=== PATIENT | male | born 1955 | race Caucasian/White ===

== ENCOUNTER 2019-11-21 08:44 | Observation (INO) | payer BC, SELFPAY ==
[2019-11-21] VITALS (11 sets, daily range): BP systolic 118–175; BP diastolic 69–102; PULSE 55–69; RESP 16–20; TEMP 36.6; O2SAT 95–98; BMI 26.4
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
--- NOTE | 2019-11-21 08:52 | CT_ITS ---
WS: [id number] CT ABDOMEN AND PELVIS WITH CONTRAST HISTORY: abd pain TECHNIQUE: Imaging performed of the abdomen and pelvis with IV contrast. Single phase imaging of the abdomen. Coronal and sagittal reformats are submitted. All CT scans at [facility] use at least one of these dose optimization techniques: automated exposure control; mA and/or kV adjustment per patient size (includes targeted exams where dose is matched to clinical indication); or iterativ e reconstruction. IV CONTRAST: Omnipaque 300; 95 mL IV. Oral contrast: No DLP: 767.29 mGy.cm COMPARISON: None available. Lower thorax: Chronic emphysematous changes at the lung bases. There are a few 2 to 3 mm nodules some which are calcified. Heart size is normal. No significant hiatal hernia. Liver/biliary system: Normal size liver with scattered granulomata. Patent portal vein. No duct dilat ation. Gallbladder: Slightly contracted gallbladder. No stones or adjacent inflammation. Pancreas: Normal. Spleen: Normal size spleen with granulomata. Adrenal glands: Bilateral adrenal gland nodules are of decreased attenuation. RIGHT adrenal gland nod ule measures 1.6 x 1.9 cm. LEFT adrenal gland nodule measures 2.1 x 1.4 cm. Right kidney: Very mild dilatation of the RIGHT renal pelvis. No solid mass or stones. Left kidney: Slight dilatation of the renal pelvis, likely an extrarenal pelvis. Low-attenuation subc entimeter nodule in the central renal pelvis may be a lipoma or small complex cysts. No renal obstruc tion. Aorta: Moderate atherosclerosis. Calcified plaque and intimal thickening with no aneurysm. Lymphadenopathy: Soft tissue masses with calcifications are noted within the RIGHT upper quadrant and around the celiac axis. Probably representing lymph nodes containing calcifications which are likely benign. May be related to prior granulomatous disease. Free fluid: None. GI tract: The appendix is been removed. Fluid-filled loops of distal small bowel. Site of the obstruc tion is not evident. Small bowel loops in the LEFT upper abdomen are mildly dilated and hyperemic. So me the central small bowel loops are more normal caliber. Extensive diverticular disease involving th e descending and sigmoid colon. No evidence for acute diverticulitis. Abdominal wall: No defects, mass or hernia. Pelvis: Normally distended urinary bladder. No free fluid or adenopathy in the pelvis. Prostate gland is enlarged and heterogeneous and contains central calcification. Bones: Lumbar spondylosis. No osseous destruction. CT/CT abdomen pelvis w con* [id number] IMPRESSION: 1. Mildly distended proximal and distal small bowel loops. Site of the obstruc tion is not evident and could be due to adhesions. 2. No free fluid or free air. 3. Prior granulomatous disease. 4. Bilateral adrenal nodules. With no history of malignancy these are statisti mark benign adenomas. 5. Descending and sigmoid diverticulosis without acute diverticulitis. 6. Prior cholecystectomy.
[2019-11-21 09:28] LABS: Basophils # 0.1 10^3/uL (0.0-0.1); Basophils % 0.5 %; Eosinophils # 0.3 10^3/uL (0.0-0.8); Eosinophils % 2.9 %; Hematocrit 51.9 % (42.0-52.0); Hemoglobin 17.9 g/dL (11.7-16.6); Lymphocytes # 2.4 10^3/uL (0.8-4.8); Lymphocytes % 24.2 %; Mean Corpuscular HGB Conc 34.5 g/dL (30.0-36.0); Mean Corpuscular Volume 92.7 fL (80-94); Mean Platelet Volume 11.2 fL (7.4-10.4); Monocytes # 0.7 10^3/uL (0.2-0.9); Monocytes % 6.9 %; Neutrophils # 6.5 10^3/uL (1.8-7.7); Neutrophils % 65.2 %; Nucleated Red Blood Cells % 0 %; Platelet Count 217 10^3/cmm (130-400); Red Cell Distribution Width 12.5 % (12.1-15.1)
[2019-11-21] MEDS: morphine 4 mg/mL SDV 1 mL IVP ×2 (09:28→11:51)
[2019-11-21] MEDS: sodium chloride 0.9% 1,000 ML 999 ML IV (09:28)
[2019-11-21] MEDS: ondansetron 2 mg/ML SDV 2 mL 4 MG IVP (09:28)
[2019-11-21 09:39] LABS: Alanine Aminotransferase 20 U/L (0-41); Albumin Level 4.8 g/dL (3.5-5.2); Alkaline Phosphatase 90 IU/L (40-130); Anion Gap 16.4 (5-19); Aspartate Amino Transferase 15 U/L (0-40); Blood Urea Nitrogen 14 mg/dL (8-23); Calcium 10.5 mg/Dl (8.8-10.2); Carbon Dioxide 28 mmol/L (22-29); Chloride 99 mmol/L (98-107); Globulin 2.6 g/dL (1.3-4.6); Glomerular Filtration Rate 97.3 mL/min (90-130); Glucose 134 mg/dL (74-106); Potassium 4.4 mmol/L (3.5-5.1); Sodium 139 mmol/L (136-145); Total Bilirubin 0.7 mg/dL (0.15-1.2); Total Protein 7.4 g/dL (6.6-8.7)
[2019-11-21] MEDS: iohexol 300 mg/mL 100 mL Btl IV (10:07)
[2019-11-21 10:18] LABS: Bilirubin Urine Neg (NEGATIVE); Blood Urine Neg (Negative); Glucose Urine UA Norm (Normal); Ketones Urine Negative (Negative); Nitrate Urine Negative (Negative); Protein Urine Neg (Negative); Urine Appearance Clear (CLEAR); Urine Color Yellow (Yellow); pH Urine 6.5 (5-7)
[2019-11-21 10:19] LABS: Add Urine Microscopic? YES; Leukocyte Esterase Urine Trace (Negative); Urobilinogen Urine Norm (Negative)
[2019-11-21 10:20] LABS: Add Urine Culture? No; Bacteria Urine TRACE; Mucus Urine TRACE; Squamous Epithelial Cell Urine 0-4 (0-5); WBC Urine 0-4 /hpf (0-5)
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
[2019-11-21] MEDS: pantoprazole 40 mg SDV IVP (15:50)
[2019-11-21] MEDS: sodium chloride 0.9% 1,000 ML 100 ML IV (15:50)
[2019-11-21] MEDS: pneumococcal (23 valent) SDV 0.5 mL IM (15:53)
[2019-11-21] MEDS: metoprolol tartrate 50 mg Tablet PO (18:48)
[2019-11-21] MEDS: morphine 4 mg/mL SDV 1 mL 2 MG IVP (18:51)
[2019-11-21] MEDS: levalbuterol 0.63 mg/3 mL Neb INHALATION (20:58)
[2019-11-21] MEDS: nicotine 21 mg Patch 1 PATCH TRANSDERMA (21:16)
[2019-11-21 21:49] LABS: Glucose Point of Care 150 mg/dL (70-110)
[2019-11-22] VITALS (8 sets, daily range): BP systolic 133–148; BP diastolic 75–80; PULSE 59–66; RESP 16–18; TEMP 36.4–36.7; O2SAT 96–100
[2019-11-22] MEDS: morphine 4 mg/mL SDV 1 mL 2 MG IVP ×2 (00:20→06:29)
[2019-11-22] MEDS: sodium chloride 0.9% 1,000 ML 100 ML IV (03:26)
[2019-11-22 05:37] LABS: Basophils % 0.3 %; Eosinophils # 0.3 10^3/uL (0.0-0.8); Eosinophils % 3.2 %; Hematocrit 44.8 % (42.0-52.0); Hemoglobin 14.5 g/dL (11.7-16.6); Lymphocytes # 2.2 10^3/uL (0.8-4.8); Lymphocytes % 21.4 %; Mean Corpuscular HGB Conc 32.4 g/dL (30.0-36.0); Mean Corpuscular Hemoglobin 29.8 pg (28.0-34.0); Mean Corpuscular Volume 92.2 fL (80-94); Mean Platelet Volume 11.7 fL (7.4-10.4); Monocytes # 0.8 10^3/uL (0.2-0.9); Monocytes % 7.4 %; Neutrophils # 6.8 10^3/uL (1.8-7.7); Neutrophils % 67.5 %; Nucleated Red Blood Cells % 0 %; Platelet Count 173 10^3/cmm (130-400); Red Blood Count 4.86 10^6/uL (4.1-5.3); Red Cell Distribution Width 12.7 % (12.1-15.1); White Blood Count 10.1 10^3/uL (4.0-10.0)
[2019-11-22 05:56] LABS: Alanine Aminotransferase 14 U/L (0-41); Albumin Level 4.4 g/dL (3.5-5.2); Alkaline Phosphatase 73 IU/L (40-130); Aspartate Amino Transferase 12 U/L (0-40); Blood Urea Nitrogen 12 mg/dL (8-23); Calcium 9.6 mg/Dl (8.8-10.2); Carbon Dioxide 25 mmol/L (22-29); Chloride 101 mmol/L (98-107); Globulin 1.6 g/dL (1.3-4.6); Glomerular Filtration Rate 97.3 mL/min (90-130); Glucose 140 mg/dL (74-106); Sodium 137 mmol/L (136-145); Total Bilirubin 0.7 mg/dL (0.15-1.2)
--- NOTE | 2019-11-22 06:00 | XR_ITS ---
WS: [id number] ABDOMEN SERIES ACUTE Supine and upright views of the abdomen with AP or PA chest CLINICAL INFORMATION: illeus/SBO COMPARISON: CT November 21, 2019 FINDINGS: Heart: Normal cardiac silhouette. Lungs: Lungs are clear. No consolidation or pleural fluid. Bowel gas pattern: No significant bowel distention. Persistent air in the small and large bowel. Free air: None. Abnormal calcifications: None. Bones: Normal. XR/XR acute abdomen series [id number] IMPRESSION: No significant small bowel distention. No evidence of small bowel obstruction p rogression
[2019-11-22 07:08] LABS: Glucose Point of Care 120 mg/dL (70-110)
[2019-11-22] MEDS: atorvastatin 40 mg Tablet 80 MG PO (09:03)
[2019-11-22] MEDS: metoprolol tartrate 50 mg Tablet PO (09:04)
[2019-11-22] MEDS: pantoprazole 40 mg SDV IVP (09:04)
[2019-11-22] MEDS: aspirin 81 mg EC Tablet PO (09:04)
[2019-11-22] MEDS: lisinopril 10 mg Tablet PO (09:04)
[2019-11-22] MEDS: clopidogrel 75 mg Tablet PO (09:04)
[2019-11-22] MEDS: amlodipine 5 mg Tablet 2.5 MG PO (09:05)
--- NOTE | 2019-11-22 09:51 | PM.PN ---
Subjective Subjective: Interval history: The patient seems to indicate that he is feeling a little bit better today. He has not had any bowel movements since he came into the hospital, and consequently stool studies have not been sent yet. He has taken some pain medication for his abdominal pain, and says that some of that is still lingering in the lower midline. Vitals/I&O/Wt Last Vital Signs Temp 98.1 F 11/22/19 08:00 Pulse 63 11/22/19 08:00 Resp 16 11/22/19 08:00 BP 148/80 11/22/19 08:00 Pulse Ox 98 11/22/19 08:00 11/21/19 11/22/19 11/22/19 22:59 06:59 14:59 Intake Total 840 / 840 1000 / 1840 720 / 720 Output Total 300 / 300 875 / 875 Balance 840 / 840 700 / 1540 -155 / -155 Weight last 48 hrs Weight 181 lb 7 oz Weight 174 lb Physical Exam Narrative: EXAM NARRATIVE: Bowel sounds are present but are hypoactive. The abdomen remains very soft he does have some mild to moderate tenderness in the lower midline without guarding. A&P Assessment and plan (1) Abdominal pain: Again, I do not think the patient has any type of small bowel obstruction. This appears to be more of an enteritis in my mind. Status: Acute Code(s): R10.9 - Unspecified abdominal pain (2) Diarrhea: The patient has not had any further bowel movements since coming into the hospital. Stool studies are ordered and pending. Status: Acute Code(s): R19.7 - Diarrhea, unspecified Attestations Medical Necessity Statement*: See admitting service's notation. 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
[2019-11-22 11:35] LABS: Glucose Point of Care 122 mg/dL (70-110)
--- NOTE | 2019-11-22 13:50 | PM.DCS ---
Discharge Providers Date of Admission: 11/21/19 11:33 Date of Discharge: 11/22/19 Attending Provider at Admission: Erika Oneal MD Attending Provider at Discharge: Erika Oneal MD Primary Care Provider: Fede Mota MD Diagnoses at Discharge Discharge Diagnosis (1) Abdominal pain: Status: Acute Problem details: Improved on date of discharge Recommend close outpatient follow-up with primary care provider (2) Diarrhea: Status: Acute Problem details: No further episodes of diarrhea since admission, unable to collect further stool studies. Reason for Visit Reason for Visit: Reason For Visit: Illeus,Sob Hospital Course Hospital Course: Patient was seen and evaluated in the emergency department due to concern for abdominal pain and nausea and vomiting he was admitted to the hospital for further evaluation and treatment. In the ED there was a concern for partial small bowel obstruction therefore general surgery was consulted. Patient was started on a clear liquid diet after he was able to pass gas and stool studies were ordered for further evaluation due to patient being on well water and having diarrhea for the past 6 weeks. Patient did not have any further diarrhea stools but continued to pass flatus. He was started on PPI and continued to have improvement in his symptoms. Discussed with general surgeon and more concern for gastroenteritis rather than partial obstruction. Plan for discharge with close outpatient follow-up with primary care provider. Physical Exam Const: COMMON NORMALS: oriented x3 and alert GENERAL APPEARANCE: cooperative ORIENTATION/CONSCIOUSNESS: Yes awake, Yes oriented to person, Yes oriented to place and Yes oriented to time HENMT: COMMON NORMALS: normocephalic and head/scalp atraumatic HEAD & SCALP: normocephalic and atraumatic Eye: COMMON NORMALS: PERRL PUPIL: Yes PERRL Neck/C-Spine: COMMON NORMALS: supple GENERAL: Yes normal visual inspection Resp: COMMON NORMALS: normal respiratory effort and clear to auscultation bilaterally EFFORT & INSPECTION: Yes able to speak in complete sentences AUSCULTATION: clear to auscultation bilaterally, no rhonchi and no wheezes Cardio: COMMON NORMALS: regular rate and regular rhythm RATE: regular rate RHYTHM: regular rhythm GI: COMMON NORMALS: soft to palpation AUSCULTATION: Yes normoactive bowel sounds PALPATION: Yes soft and No tender Extremity: COMMON NORMALS: no clubbing, cyanosis or edema and no calf tenderness Neuro: COMMON NORMALS: oriented x3, CN's II-XII intact bilaterally, moves all extremities and no focal motor deficits SENSORIUM/ORIENTATION: Yes alert, Yes oriented to person, Yes oriented to place and Yes oriented to time SPEECH: speech normal Psych: COMMON NORMALS: mental status grossly normal and cooperative Skin: COMMON NORMALS: no rashes or lesions noted GENERAL SKIN EXAM: no rashes or lesions noted Discharge Data Data Completed and Pending: Completed Studies During Hospitalization Category Date Time Status CT abdomen pelvis w con* [id number] Urge nt Cat Scan 11/21/19 08:52 Completed XR acute abdomen series [id number] Routi ne Exams 11/22/19 06:00 Completed Pending at discharge Category Date Time Status Ova and Parasite Exam Routine Lab 11/21/19 12:55 Uncollected PSA Free Routine Lab 11/22/19 04:11 Received Stool Culture Rou [place] Lab 11/21/19 12:55 Uncollected Labs from last 24 hours 11/22/19 11/22/19 11/22/19 11:31 06:45 04:11 WBC RBC Hgb Hct MCV MCH MCHC RDW Plt Count MPV Neut % (Auto) Lymph % (Auto) [place] % (Auto) Eos % (Auto) Baso % (Auto) Neut # (Auto) Lymph # (Auto) [place] # (Auto) Eos # (Auto) Baso # (Auto) Nucleated RBC % (a uto) Nucleated RBCs # Sodium 137 Potassium 4.0 Chloride 101 Carbon Dioxide 25 Anion Gap 15.0 BUN 12 Creatinine 0.8 GFR Calculation 97.3 Glucose 140 H POC Glucose 122 120 Calcium 9.6 Total Bilirubin 0.7 AST 12 ALT 14 Alkaline Phosphata se 73 Total Protein 6.0 L Albumin 4.4 Globulin 1.6 11/22/19 11/21/19 04:11 20:26 WBC 10.1 H RBC 4.86 Hgb 14.5 Hct 44.8 MCV 92.2 MCH 29.8 MCHC 32.4 D RDW 12.7 Plt Count 173 MPV 11.7 H Neut % (Auto) 67.5 Lymph % (Auto) 21.4 [place] % (Auto) 7.4 Eos % (Auto) 3.2 Baso % (Auto) 0.3 Neut # (Auto) 6.8 Lymph # (Auto) 2.2 [place] # (Auto) 0.8 Eos # (Auto) 0.3 Baso # (Auto) 0.0 Nucleated RBC % (a uto) 0 Nucleated RBCs # 0.0 Sodium Potassium Chloride Carbon Dioxide Anion Gap BUN Creatinine GFR Calculation Glucose POC Glucose 150 Calcium Total Bilirubin AST ALT Alkaline Phosphata se Total Protein Albumin Globulin Vitals: Last Vital Signs Temp 97.6 F 11/22/19 11:31 Pulse 59 L 11/22/19 11:31 Resp 16 11/22/19 11:31 BP 146/76 11/22/19 11:31 Pulse Ox 97 11/22/19 11:31 Discharge Plan Discharge Patient Disposition: Home, Self-Care Condition: Stable Prescriptions: New ondansetron HCl [Zofran] 4 mg tablet 4 mg PO Q8H PRN (Reason: nausea and vomiting) 5 Days Qty: 20 RF: 0 pantoprazole [Protonix] 40 mg tablet,delayed release (DR/EC) 40 mg PO DAILY 30 Days Qty: 30 RF: 0 Continued levalbuterol HCl 0.63 mg/3 mL Solution For Nebulization See Rx Instructions .ROUTE .COMPLEX RF: 0 Xanax 1 mg Tablet 1 mg PO TID PRN (Reason: Anxiety) RF: 0 metoprolol tartrate 100 mg Tablet 50 mg PO BID RF: 0 amlodipine-benazepril 2.5-10 mg Capsule 1 cap PO DAILY RF: 0 Plavix 75 mg Tablet 75 mg PO DAILY RF: 0 Aspir-81 81 mg Tablet,Delayed Release (Dr/Ec) 81 mg PO DAILY RF: 0 rosuvastatin 40 mg Tablet 40 mg PO DAILY RF: 0 Fish Oil 1,000 mg (120 mg-180 mg) Capsule 1 cap PO DAILY PRN (Reason: unknown) RF: 0 Discharge Orders: Discharge Order (Routine); Ordered 11/22/19 Ordered By: Erika Oneal Referrals: Fede Mota MD [Primary Care Provider] - 4-7 days Discharge Diet: Soft, bland diet, gradually increase as tolerated Discharge Activity: Increase activity as tolerated Activity Restrictions/Additional Instructions: GI soft, bland diet and gradually increase as tolerated Increase activity as tolerated Follow-up with primary care provider in 4 to 7 days Started on Protonix 40 mg daily Given Zofran as needed for nausea Follow-up with primary care provider to discuss the possibility of outpatient colonoscopy Discharge Attestations Time Spent in Discharge Care*: greater than 30 min Quality Metrics Clinical Quality Measures During this hospital stay, did patient experience: None Coding Level of Care Code Acute Public Health Aide for Chg Fwd Diagnoses Abdominal pain R10.9 Diarrhea R19.7
--- NOTE | 2019-11-22 15:31 | PC.CHAP ---
Pastoral Care Encounter/Spiritual Assessment Type of Contact [] Declined regional account manager visit [] Patient/Family/Request visit [] Outpatient visit [] Follow-up visit [] Physician referral [] Code/Alert [x] Routine visit [] Staff referral [] Actively dying [] Patient sleeping [] Family support [] [] Out of room [] Palliative care [] [] Receiving care in room [] Pre-surgical visit [] Trauma [] Long length of stay [] ICU visit [] Other: Relational/Emotional Strength [x] Patient feels connected with others/family/visitors/staff [] Distress [] Loneliness/isolation [] Abandonment Spirituality of Patient [x] Person of [place] [x] Attends Mosque of their [place] [x] Believes in Prayer [x] Reads Bible or Tenriism materials [] There are Spiritual issues to be addressed [employer] Interventions [x] Prayer [x] Active listening [x] Non-anxious presence [x] Spiritual/emotional support [] Crisis/trauma care [x] Spiritual counseling [] Bereavement support [] Provided bereavement packet [] Provided Bible/devotional materials [] Provided toy/stuffed animal, coloring book to patient or family member [x] Completed spiritual assessment [] Provided Communion [] Anointing/T[place] [] Salvation [] Other: Impact on Illness or Injury [] Angry [] Fearful [] Anxious [] Often cries [] Exhaustion [] Unable to work [] Unable to attend oriental orthodox [] Unable to walk/stand [] Unable to read [] Unable to drive [] Unable to eat/drink [] Unable to sleep [] Unable to be with family [] Other: Summary Family is with patient, Patient is very happy in the Lord. [employer] Leader enjoyed the visit. Time spent with patient 25min
[2019-11-26 12:37] LABS: PSA Free 0.1 ng/mL; PSA Free Percentage 33 % (calc) (>25); PSA Total 0.3 ng/mL (< OR = 4.0)
== END 2019-11-22 16:31 | disposition home or self-care (01) ==
LOC: ER 09:14 → MEDSURG 13:36
PROVIDERS: Admitting Provider Family Medicine; Emergency Provider Family Medicine; PCP Family Medicine; Visit Provider Family Medicine
DX: R10.9 Unspecified abdominal pain (principal); R19.7 Diarrhea, unspecified; I10 Essential (primary) hypertension; I25.10 Atherosclerotic heart disease of native coronary artery without angina pectoris; J44.9 Chronic obstructive pulmonary disease, unspecified; Z79.02 Long term (current) use of antithrombotics/antiplatelets; Z79.82 Long term (current) use of aspirin; E78.00 Pure hypercholesterolemia, unspecified; F17.210 Nicotine dependence, cigarettes, uncomplicated; K21.9 Gastro-esophageal reflux disease without esophagitis; Z95.5 Presence of coronary angioplasty implant and graft
CPT/HCPCS: 36415; 36416; 74022; 74177; 80053; 81003; 82962; 84154; 85025; 90686; 90732; 94640; 96361; 96374; 96375; 96376; 99221; 99282; 99285; A9270; C9113; G0378; J2270; J2405; J7030; J7614; Q9967

== ENCOUNTER 2020-09-16 20:00 | Outpatient (CLI) | payer MEDICARE, SELFPAY | END 2020-09-16 20:01 | disposition home or self-care (01) | LOC: SLEEP 09-17 10:54 | PROVIDERS: PCP Family Medicine; Visit Provider Family Medicine | DX: G47.33 Obstructive sleep apnea (adult) (pediatric) (principal) | CPT/HCPCS: 95810 ==

== ENCOUNTER 2020-10-20 20:00 | Outpatient (CLI) | payer MEDICARE, SELFPAY | END 2020-10-20 20:01 | disposition home or self-care (01) | LOC: SLEEP 10-21 09:45 | PROVIDERS: PCP Family Medicine; Visit Provider Family Medicine | DX: G47.33 Obstructive sleep apnea (adult) (pediatric) (principal) | CPT/HCPCS: 95811 ==

== ENCOUNTER → 2025-10-17 12:45 | Outpatient (BNVA) | payer MEDICARE, SELFPAY | PROVIDERS: PCP Family Medicine; Visit Provider Dermatology | DX: C44.329 Squamous cell carcinoma of skin of other parts of face (principal); Z08 Encounter for follow-up examination after completed treatment for malignant neoplasm; Z85.828 Personal history of other malignant neoplasm of skin; C44.629 Squamous cell carcinoma of skin of left upper limb, including shoulder; D48.5 Neoplasm of uncertain behavior of skin | CPT/HCPCS: 11102; 11602; 12032; 99203 ==